=== PATIENT | male | born 1980 | race Caucasian/White ===

== ENCOUNTER 2025-08-10 08:19 | Emergency (ER) | payer MEDICAID ==
[~2025-08-10] VITALS: Ht 170.2 cm; Wt 86.4 kg
[2025-08-10 08:29] VITALS: TEMP 98.4
[2025-08-10] MEDS ORDERED: TETANUS/DIPHTHERIA TOXOID [TENIVAC] [7YR+] 0.5 ML SYRINGE IM. ONE (09:45)
[2025-08-10] MEDS: PERTUSS(ACELL),DIPH,TET/PF 0.5 ML SYRINGE [ADULT] IM. ONE (09:46)
[2025-08-10] MEDS ORDERED: CEPH-558 PO (09:53)
[2025-08-10 09:57] VITALS: BP 135/99; PULSE 85; RESP 16; O2SAT 98
== END 2025-08-10 09:59 | disposition home or self-care (01) ==
LOC: EMS 08:35
DX: S40.851A Superficial foreign body of right upper arm, initial encounter (principal); X58.XXXA Exposure to other specified factors, initial encounter; Y93.89 Activity, other specified; Y92.89 Other specified places as the place of occurrence of the external cause; Y99.8 Other external cause status
CPT/HCPCS: 10120; 90471; 90714; 90715; 99285